=== PATIENT | male | born 1950 | race Asian ===

== ENCOUNTER 2025-01-04 01:16 | Inpatient (IN) | payer SELFPAY ==
[2025-01-04] MEDS ORDERED: Ondansetron PF 4 MG/2 ML Vial ONE ×2 (02:09→10:29)
[2025-01-04] MEDS ORDERED: Bacitracin 1 PK ONE (02:48)
[2025-01-04] MEDS ORDERED: hydrALAZINE 20 MG/ML VIAL SLOW IVP PRN (02:57)
[2025-01-04] MEDS ORDERED: Dextrose 50% Abboject 50 ML SYRINGE SLOW IVP PRN (02:57)
[2025-01-04] MEDS ORDERED: Glucagon 1 MG/ML KIT IM PRN (02:57)
[2025-01-04 04:16] VITALS: BMI 26.0
[2025-01-04] MEDS: Acetaminophen 325 MG TAB PO SCH (05:05)
[2025-01-04 05:25] LABS: Hematocrit 39.9 % (42.0-52.0); Hemoglobin 13.2 g/dL (14.0-18.0); Mean Corpuscular Hemoglobin 26.4 pg (27.0-31.0); Mean Corpuscular Volume 79.8 fL (78.0-98.0); Platelet Count 204 10x3/uL (130-400); Red Blood Cell (RBC) Count 5.00 mill/uL (4.70-6.10); White Blood Cell (WBC) Count 9.13 10x3/uL (4.8-10.8)
[2025-01-04 05:58] LABS: Burr Cells SLIGHT = 2-5 cells HPF (0-1); Platelet Adequacy Comment Platelets Normal; Smudge Cells 2.9 %
[2025-01-04 06:20] LABS: Anion Gap 12 mmol/L (10-20); BUN (Urea Nitrogen) 10 mg/dL (8.4-25.7); Calc. Creatinine Clearance 88 mL/min (70-130); Calcium 8.4 mg/dL (7.8-10.44); Carbon Dioxide 21 mmol/L (23-31); Chloride 101 mmol/L (98-107); Glucose 157 mg/dL (83-110); Potassium 4.1 mmol/L (3.5-5.1); Sodium 130 mmol/L (136-145)
[2025-01-04] MEDS: Famotidine 20 MG TAB PO SCH (08:52)
[2025-01-04] MEDS ORDERED: Bupivacaine 0.25% HCL 30 ML VIAL ONE (10:11)
[2025-01-04] MEDS ORDERED: Rocuronium Bromide 10 MG/ML (10ML VIAL) ONE (10:20)
[2025-01-04] MEDS ORDERED: PROPOFOL 20 ML ONE (10:20)
[2025-01-04] MEDS ORDERED: SUCCINYLCHOLINE/SOD CL,ISO/PF 200 MG/10 ML SYRINGE FS ONE (10:20)
[2025-01-04] MEDS ORDERED: fentaNYL PF 100 MCG/2 ML SYRINGE ONE (10:20)
[2025-01-04] MEDS ORDERED: SUGAMMADEX SODIUM 200 MG/2 ML VIAL ONE (10:29)
[2025-01-04] MEDS ORDERED: metroNIDAZOLE 500 MG (100 mL) BAG ONE (11:01)
[2025-01-04] MEDS ORDERED: CEFAZOLIN 1 GM VIAL ONE (11:01)
[2025-01-04] MEDS ORDERED: HYDROmorphone 0.5 MG/0.5 ML SYR SLOW IVP PRN (11:16)
[2025-01-04] MEDS ORDERED: cloNIDine 0.1 MG TAB PO PRN (18:38)
[2025-01-04] MEDS: Senokot S 8.6-50 MG TAB PO SCH (20:42)
[2025-01-04] MEDS: Enoxaparin 40 MG (0.4 mL) SYRINGE SC SCH (20:42)
[2025-01-05 08:15] LABS: Hematocrit 34.1 % (42.0-52.0); Hemoglobin 11.3 g/dL (14.0-18.0); Mean Corpuscular Hemoglobin 26.2 pg (27.0-31.0); Mean Corpuscular Volume 79.1 fL (78.0-98.0); Platelet Count 169 10x3/uL (130-400); Red Blood Cell (RBC) Count 4.31 mill/uL (4.70-6.10); White Blood Cell (WBC) Count 11.12 10x3/uL (4.8-10.8)
[2025-01-05 08:31] LABS: Anion Gap 10 mmol/L (10-20); BUN (Urea Nitrogen) 13 mg/dL (8.4-25.7); Calc. Creatinine Clearance 92 mL/min (70-130); Calcium 8.5 mg/dL (7.8-10.44); Carbon Dioxide 26 mmol/L (23-31); Chloride 102 mmol/L (98-107); Glucose 126 mg/dL (83-110); Potassium 3.5 mmol/L (3.5-5.1); Sodium 134 mmol/L (136-145)
[2025-01-05] MEDS ORDERED: Pantoprazole 40 MG DR.TAB PO SCH (09:00)
[2025-01-06] MEDS: Calcium Carbonate 500 MG ChewTAB PO PRN (04:37)
[2025-01-06] MEDS: Ondansetron PF 4 MG/2 ML Vial IVP PRN (04:39)
[2025-01-06 06:16] LABS: #Basophils 0.03 10x3/uL (0.0-0.2); #Eosinophils 0.11 10x3/uL (0.0-0.7); #Monocytes 0.45 10x3/uL (0.11-0.59); #Neutrophils 11.20 10x3/uL (1.40-6.50); %Basophils 0.2 % (0.0-1.0); %Eosinophils 0.9 % (0.0-10.0); %Lymphocytes 3.3 % (21.0-51.0); %Monocytes 3.7 % (0.0-10.0); %Neutrophils 91.0 % (42.0-75.0); Hematocrit 32.5 % (42.0-52.0); Hemoglobin 10.8 g/dL (14.0-18.0); Mean Corpuscular Hemoglobin 26.0 pg (27.0-31.0); Mean Corpuscular Volume 78.3 fL (78.0-98.0); Platelet Count 193 10x3/uL (130-400); Red Blood Cell (RBC) Count 4.15 mill/uL (4.70-6.10); White Blood Cell (WBC) Count 12.31 10x3/uL (4.8-10.8)
[2025-01-06 06:53] LABS: Anion Gap 8 mmol/L (10-20); BUN (Urea Nitrogen) 10 mg/dL (8.4-25.7); Calc. Creatinine Clearance 119 mL/min (70-130); Calcium 8.5 mg/dL (7.8-10.44); Carbon Dioxide 26 mmol/L (23-31); Chloride 102 mmol/L (98-107); Glucose 172 mg/dL (83-110); Potassium 3.1 mmol/L (3.5-5.1); Sodium 133 mmol/L (136-145)
[2025-01-06] MEDS: Potassium Chloride 20 MEQ in Premix 1 BAG IVPB SCH (09:39)
[2025-01-06] MEDS ORDERED: Non-Formulary Item 1 EACH (Telmisartan [Telmisartan] 40 MG Tablet) PO SCH (21:00)
[2025-01-06] MEDS: Losartan 25 MG TAB PO SCH (21:48)
[2025-01-06] MEDS: Simethicone Chewable 80 MG TAB PO PRN (22:06)
[2025-01-07 05:12] LABS: #Basophils 0.04 10x3/uL (0.0-0.2); #Eosinophils 0.32 10x3/uL (0.0-0.7); #Monocytes 0.59 10x3/uL (0.11-0.59); #Neutrophils 8.15 10x3/uL (1.40-6.50); %Basophils 0.4 % (0.0-1.0); %Eosinophils 3.2 % (0.0-10.0); %Lymphocytes 7.1 % (21.0-51.0); %Monocytes 5.9 % (0.0-10.0); %Neutrophils 82.0 % (42.0-75.0); Hematocrit 32.1 % (42.0-52.0); Hemoglobin 10.8 g/dL (14.0-18.0); Mean Corpuscular Hemoglobin 26.4 pg (27.0-31.0); Mean Corpuscular Volume 78.5 fL (78.0-98.0); Platelet Count 236 10x3/uL (130-400); Red Blood Cell (RBC) Count 4.09 mill/uL (4.70-6.10); White Blood Cell (WBC) Count 9.95 10x3/uL (4.8-10.8)
[2025-01-07 08:12] LABS: ALT (SGPT) 11 U/L (Less than 45); AST (SGOT) 21 U/L (11-34); Albumin 2.5 g/dL (3.1-4.5); Alkaline Phosphatase 66 U/L (40-110); Anion Gap 13 mmol/L (10-20); BUN (Urea Nitrogen) 8 mg/dL (8.4-25.7); Bilirubin, Total 1.1 mg/dL (0.3-1.2); Calc. Creatinine Clearance 114 mL/min (70-130); Calcium 8.6 mg/dL (7.8-10.44); Carbon Dioxide 24 mmol/L (23-31); Chloride 103 mmol/L (98-107); Globulin 2.9 g/dL (2.4-3.5); Glucose 121 mg/dL (83-110); Potassium 3.5 mmol/L (3.5-5.1); Sodium 136 mmol/L (136-145)
[2025-01-07 17:54] VITALS: BP 146/76; TEMP 98.5
== END 2025-01-07 21:19 | disposition home or self-care (01) | DRG 854 ==
LOC: ERS 01:16 → INTOOBSV 02:36 → SURG B 02:36 → OBSVTOIN 01-05 08:37
PROVIDERS: ADMIT Surgery; ATTEND Surgery
PROC: 0DTJ4ZZ Resection of Appendix, Percutaneous Endoscopic Approach (ICD-10-PCS; principal; 2025-01-04)
PROC: 3E03329 Introduction of Other Anti-infective into Peripheral Vein, Percutaneous Approach (ICD-10-PCS; 2025-01-04)
DX: A41.9 Sepsis, unspecified organism (principal); E87.1 Hypo-osmolality and hyponatremia; K35.80 Unspecified acute appendicitis; I10 Essential (primary) hypertension; E78.5 Hyperlipidemia, unspecified; F10.90 Alcohol use, unspecified, uncomplicated; E11.65 Type 2 diabetes mellitus with hyperglycemia; Z98.890 Other specified postprocedural states; Z79.899 Other long term (current) drug therapy; Z79.84 Long term (current) use of oral hypoglycemic drugs; Z87.891 Personal history of nicotine dependence; K59.09 Other constipation; D64.9 Anemia, unspecified
CPT/HCPCS: 36415; 36416; 71045; 80048; 80053; 83036; 85025; 85027; 87040; 88304; 93005; 96372; 96374; 96375; 96376; G0378; J0169; J0665; J0690; J1650; J1815; J2270; J2405; J2543; J2704; J3480; J7120